=== PATIENT | female | born 1990 | race African-American/Black ===

== ENCOUNTER 2021-05-22 20:47 | Emergency (ER) | payer OTHER ==
[2021-05-22 23:23] LABS: Urine Blood 1+ (Negative); Urine Glucose Negative (Negative); Urine Protein Negative (Negative)
[2021-05-22] MEDS ORDERED: DIPHENHYDRAMINE 50 MG/ML VIAL ONE (23:38)
[2021-05-22] MEDS ORDERED: KETOROLAC 30 MG/ML INJ ONE (23:38)
[2021-05-22] MEDS ORDERED: METOCLOPRAMIDE 10 MG/2mL INJ ONE (23:38)
[2021-05-22] MEDS ORDERED: NA CHLORIDE 0.9% 1,000 ML ONE (23:38)
[2021-05-23 00:15] LABS: Absolute Lymphocytes (CBC) 2.7 K/uL (0.7-4.9); Basophils % 0.6 % (0-1.3); Hematocrit 38.2 % (36.0-45.0); Lymphocytes % 38.8 % (15.3-44.8); MPV 8.5 fL (7.6-11.3); RBC Red Blood Cell Count 4.29 M/uL (3.86-4.86)
[2021-05-23 00:19] LABS: ALT/SGPT 20 U/L (12-78); AST/SGOT 17 U/L (15-37); Albumin 3.2 g/dL (3.4-5.0); Alkaline Phosphatase 60 U/L (45-117); BUN Blood Urea Nitrogen 9 mg/dL (7-18); Bicarbonate 23 mmol/L (21-32); Bilirubin Direct < 0.1 mg/dL (0-0.2); Bilirubin Total 0.2 mg/dL (0.2-1.0); Glucose Level 81 mg/dL (74-106); Lipase 128 U/L (73-393); Potassium 3.7 mmol/L (3.5-5.1); Protein, Total 7.1 g/dL (6.4-8.2); Sodium Level 139 mmol/L (136-145)
--- NOTE | 2021-05-23 01:50 | ER ---
Nurse's Notes [facility] Name: Trisha Escobar Age: 30 yrs Sex: Female : 1990 Arrival Date: 05/22/2021 Time: 20:51 Bed 19 Private MD: Diagnosis: Headache;Diarrhea, unspecified Presentation: 05/22 21:03 Chief complaint: Patient states: For about a week pt has had NV and headache. Pt states vg1 'the light bothers me'. Coronavirus screen: Client denies travel out of the [place] in the last 14 days. Ebola Screen: Patient negative for fever greater than or equal to 101.5 degrees Fahrenheit, and additional compatible Ebola Virus Disease symptoms. Initial Sepsis Screen: Does the patient meet any 2 criteria? No. Patient's initial sepsis screen is negative. Does the patient have a suspected source of infection? No. Patient's initial sepsis screen is negative. Risk Assessment: Do you want to hurt yourself or someone else? Patient reports no desire to harm self or others. Onset of symptoms was May 17, 2021. 21:03 Method Of Arrival: Ambulatory [facility] 21:03 Acuity: FLORENTINO 4 vg1 Triage Assessment: 21:05 Headache History: The patient has had previous headaches and this one is different than vg1 previous episodes, and this one is more severe than previous episodes. General: Appears in no apparent distress. uncomfortable, Behavior is calm, cooperative. Pain: Complains of pain in head Pain currently is 7 out of 10 on a pain scale. Pain began about a week ago Also complains of nausea, photophobia. Neuro: Level of Consciousness is awake, alert, obeys commands, Oriented to person, place, time, situation, Reports headache photophobia. 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 - Social history:: Smoking status: Patient denies any tobacco usage or history of. Screenin:00 Abuse screen: Denies threats or abuse. Nutritional screening: No deficits noted. jb4 Tuberculosis screening: No symptoms or risk factors identified. Fall Risk None identified. Assessment: 22:00 General: Appears in no apparent distress. uncomfortable, Behavior is calm, cooperative, jb4 appropriate for age. Pain: Complains of pain in right side of head Pain does not radiate. Pain currently is 7 out of 10 on a pain scale. Neuro: Level of Consciousness is awake, alert, obeys commands, Oriented to person, place, time, situation. Cardiovascular: Patient's skin is warm and dry. Respiratory: Airway is patent Respiratory effort is even, unlabored, Respiratory pattern is regular, symmetrical. GI: No signs and/or symptoms were reported involving the gastrointestinal system. : No signs and/or symptoms were reported regarding the genitourinary system. EENT: No signs and/or symptoms were reported regarding the EENT system. Derm: Skin is intact, Skin is pink, warm \T\ dry. Musculoskeletal: Circulation, motion, and sensation intact. Range of motion: intact in all extremities. 23:00 Reassessment: Patient appears in no apparent distress at this time. Patient and/or jb4 family updated on plan of care and expected duration. Pain level reassessed. Patient is alert, oriented x 3, equal unlabored respirations, skin warm/dry/pink. 05/23 00:00 Reassessment: Patient appears in no apparent distress at this time. Patient and/or jb4 family updated on plan of care and expected duration. Pain level reassessed. Patient is alert, oriented x 3, equal unlabored respirations, skin warm/dry/pink. Patient states feeling better. 01:00 Reassessment: Patient appears in no apparent distress at this time. Patient and/or jb4 family updated on plan of care and expected duration. Pain level reassessed. Patient is alert, oriented x 3, equal unlabored respirations, skin warm/dry/pink. 02:33 Reassessment: Patient appears in no apparent distress at this time. Patient and/or jb4 family updated on plan of care and expected duration. Pain level reassessed. Patient is alert, oriented x 3, equal unlabored respirations, skin warm/dry/pink. Pt verbalized understanding of d/c and follow up instructions. Denies questions or concerns. Assisted to vehicle via wheelchair. Vital Signs: 05/22 21:03 BP 109 / 79; Pulse 73; Resp 16; Temp 98.1; Pulse Ox 100% ; Weight 102.06 kg; Height 5 vg1 ft. 3 in. (160.02 cm); Pain 7/10; 23:45 BP 124 / 70; Pulse 72; Resp 16; Pulse Ox 99% on R/A; jb4 05/23 00:45 BP 120 / 77; Pulse 80; Resp 18; Pulse Ox 98% on R/A; jb4 01:30 BP 116 / 67; Pulse 75; Resp 16; Pulse Ox 100% on R/A; jb4 02:15 BP 102 / 57; Pulse 73; Resp 16; Pulse Ox 100% on R/A; jb4 05/22 21:03 Body Mass Index 39.86 (102.06 kg, 160.02 cm) vg1 ED Course: 05/22 20:51 Patient arrived in ED. bp1 21:05 Triage completed. vg1 21:05 Arm band placed on. vg1 22:00 Patient has correct armband on for positive identification. Placed in gown. Bed in low jb4 position. Call light in reach. Side rails up X 1. Pulse ox on. NIBP on. 22:15 Diaz Baez NP is PHCP. pm1 22:15 Blaise Saleem MD is Attending Physician. pm1 23:19 Irving Olmos, BASSEM is Primary Nurse. jb4 23:20 CT Head Brain wo Cont In Process Unspecified. EDMS 05/23 02:35 No provider procedures requiring assistance completed. IV discontinued, intact, jb4 bleeding controlled, No redness/swelling at site. Pressure dressing applied. Administered Medications: 05/22 23:32 Drug: Benadryl (diphenhydrAMINE) 25 mg Route: IVP; Site: right antecubital; jb4 05/23 00:00 Follow up: Response: No adverse reaction jb4 05/22 23:32 Drug: NS 0.9% 1000 ml Route: IV; Rate: 1000 ml; Site: right antecubital; jb4 05/23 00:30 Follow up: Response: No adverse reaction; IV Status: Completed infusion; IV Intake: jb4 1000ml 05/22 23:33 Drug: Ketorolac 30 mg Route: IVP; Site: right antecubital; jb4 07/07 00:00 Follow up: Response: No adverse reaction jb4 05/22 23:33 Drug: Reglan (metoCLOPramide) 10 mg Route: IVP; Site: right antecubital; jb4 05/23 00:00 Follow up: Response: No adverse reaction jb4 Intake: 00:30 IV: 1000ml; Total: 1000ml. jb4 Outcome: 01:50 Discharge ordered by MD. pm1 02:35 Discharged to home ambulatory. jb4 02:35 Condition: stable 02:35 Discharge instructions given to patient, family, Instructed on discharge instructions, follow up and referral plans. medication usage, Demonstrated understanding of instructions, follow-up care, medications, Prescriptions given X 1. 02:37 Patient left the ED. jb4 Signatures: Dispatcher [employer] EDMS Diaz Baez, CAREN PSYCHIATRY TEACHER pm1 Irving Olmos RN RN jb4 Kait Carbajal RN RN vg1 Edelmira Kirby [facility]
--- NOTE | 2021-05-23 01:51 | EDPHYS ---
Physician Documentation [facility] Name: Trisha Escobar Age: 30 yrs Sex: Female : 1990 Arrival Date: 05/22/2021 Time: 20:51 Bed 19 Private MD: ED Physician Blaise Saleem HPI: 05/23 00:06 This 30 yrs old Black Female presents to ER via Ambulatory with complaints of Headache, pm1 Nausea/Vomiting. 00:06 The patient complains of pain to the right side of head. The patient describes the pm1 headache as aching, constant. Onset: The symptoms/episode began/occurred 3 week(s) ago. Associated signs and symptoms: Pertinent positives: nausea, Photophobia vomiting, 4 days ago 3 days of diarrhea. No diarrhea today, Pertinent negatives: fever. Severity of symptoms: in the emergency department the pain is unchanged, a " 7" out of "10". Headache History: The patient has had previous headaches and this one is similar to previous episodes, and this one is more severe than previous episodes. The symptoms are alleviated by Darkened room, quiet, the symptoms are aggravated by lights, noise. The patient has not recently seen a physician. 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 - Social history:: Smoking status: Patient denies any tobacco usage or history of. ROS: 05/23 00:06 Constitutional: Negative for fever, chills, and weight loss, Eyes: Negative for injury, pm1 pain, redness, and discharge, ENT: Negative for injury, pain, and discharge, Cardiovascular: Negative for chest pain, palpitations, and edema, Respiratory: Negative for shortness of breath, cough, wheezing, and pleuritic chest pain. Back: Negative for injury and pain, MS/Extremity: Negative for injury and deformity. Skin: Negative for injury, rash, and discoloration. Abdomen/GI: Positive for nausea, vomiting, and diarrhea, Negative for abdominal pain, constipation. Neuro: Positive for headache, Negative for numbness, tingling, weakness. Exam: 00:06 Constitutional: This is a well developed, well nourished patient who is awake, alert, pm1 and in no acute distress. Head/Face: Normocephalic, atraumatic. 00:06 Back: No spinal tenderness. No costovertebral tenderness. Full range of motion. Skin: Warm, dry with normal turgor. Normal color with no rashes, no lesions, and no evidence of cellulitis. MS/ Extremity: Pulses equal, no cyanosis. Neurovascular intact. Full, normal range of motion. 00:06 Eyes: Exam is negative for acute changes, Periorbital structures: appear normal, Pupils: no acute changes, Extraocular movements: no acute changes, Conjunctiva: no acute changes, no injection, Sclera: no acute changes, icterus, is not appreciated. 00:06 ENT: Exam is negative for acute changes, Mouth: Lips: normal, Oral mucosa: normal, pink and intact, moist. 00:06 Cardiovascular: Rate: normal, Rhythm: regular, Pulses: no pulse deficits are appreciated. 00:06 Respiratory: Exam negative for acute changes, respiratory distress, shortness of breath, Breath sounds: are clear throughout. 00:06 Abdomen/GI: Exam negative for acute changes, Inspection: abdomen appears normal, Palpation: abdomen is soft and non-tender, in all quadrants. 00:06 Neuro: Exam negative for acute changes, Orientation: is normal, Mentation: is normal, Motor: is normal, moves all fours. Vital Signs: 05/22 21:03 BP 109 / 79; Pulse 73; Resp 16; Temp 98.1; Pulse Ox 100% ; Weight 102.06 kg; Height 5 vg1 ft. 3 in. (160.02 cm); Pain 7/10; 23:45 BP 124 / 70; Pulse 72; Resp 16; Pulse Ox 99% on R/A; jb4 05/23 00:45 BP 120 / 77; Pulse 80; Resp 18; Pulse Ox 98% on R/A; jb4 01:30 BP 116 / 67; Pulse 75; Resp 16; Pulse Ox 100% on R/A; jb4 02:15 BP 102 / 57; Pulse 73; Resp 16; Pulse Ox 100% on R/A; jb4 05/22 21:03 Body Mass Index 39.86 (102.06 kg, 160.02 cm) vg1 MDM: 05/22 22:59 Patient medically screened. pm1 05/23 00:10 Data reviewed: vital signs. Data interpreted: Pulse oximetry: on room air is 100 %. pm1 Interpretation: normal. 00:23 ED course: Pain 3/10 with medications given in the ER. pm1 01:49 Counseling: I had a detailed discussion with the patient and/or guardian regarding: the pm1 historical points, exam findings, and any diagnostic results supporting the discharge/admit diagnosis, lab results, radiology results, the need for outpatient follow up, to return to the emergency department if symptoms worsen or persist or if there are any questions or concerns that arise at home. 05/22 23:22 Order name: Urine Dipstick-Ancillary; Complete Time: 23:35 EDMS 05/22 23:23 Order name: Urine --Ancillary (enter results); Complete Time: 00:13 [facility] 05/22 23:34 Order name: Basic Metabolic Panel; Complete Time: 00:20 05/22 23:34 Order name: CBC with Diff; Complete Time: 00:20 05/22 23:34 Order name: Hepatic Function; Complete Time: 00:20 [facility] 05/22 23:34 Order name: Lipase; Complete Time: 00:20 05/22 22:46 Order name: CT Head Brain wo Cont pm1 05/22 23:35 Order name: Flu; Complete Time: 01:33 pm1 05/23 01:46 Order name: SARS-COV-2 RT PCR; Complete Time: 01:49 EDMS 05/22 22:46 Order name: IV Saline Lock; Complete Time: 23:32 pm1 05/22 22:46 Order name: Urine Dipstick-Ancillary (obtain specimen); Complete Time: 23:19 pm1 05/22 22:46 Order name: Urine Test (obtain specimen); Complete Time: 23:19 pm1 05/22 23:34 Order name: Labs collected and sent; Complete Time: 00:41 jb4 Administered Medications: 05/22 23:32 Drug: Benadryl (diphenhydrAMINE) 25 mg Route: IVP; Site: right antecubital; [facility] 05/23 00:00 Follow up: Response: No adverse reaction jb4 05/22 23:32 Drug: NS 0.9% 1000 ml Route: IV; Rate: 1000 ml; Site: right antecubital; 4 05/23 00:30 Follow up: Response: No adverse reaction; IV Status: Completed infusion; IV Intake: jb4 1000ml 05/22 23:33 Drug: Ketorolac 30 mg Route: IVP; Site: right antecubital; jb4 05/23 00:00 Follow up: Response: No adverse reaction jb4 05/22 23:33 Drug: Reglan (metoCLOPramide) 10 mg Route: IVP; Site: right antecubital; jb4 05/23 00:00 Follow up: Response: No adverse reaction jb4 Disposition: 08:03 Co-signature as Attending Physician, Blaise Saleem MD. [email or web address] Disposition Summary: 05/23/21 01:50 Discharge Ordered Location: Home pm1 Problem: new pm1 Symptoms: have improved pm1 Condition: Stable pm1 Diagnosis - Headache pm1 - Diarrhea, unspecified pm1 Followup: pm1 - With: Emergency Department - When: As needed - Reason: Worsening of condition Followup: pm1 - With: Private Physician - When: 2 - 3 days - Reason: Recheck today's complaints, Continuance of care, Re-evaluation by your physician Discharge Instructions: - Discharge Summary Sheet pm1 - Food Choices to Help Relieve Diarrhea, Adult pm1 - General Headache Without Cause pm1 - Tension Headache, Adult pm1 - Diarrhea, Adult, [id number] pm1 Forms: - Medication Reconciliation Form pm1 - Thank You Letter pm1 - Antibiotic Education pm1 - Prescription Opioid Use pm1 Prescriptions: - ondansetron 4 mg Oral tablet,disintegrating - take 1 tablet by ORAL route every 8 hours As needed; 15 tablet; Refills: 0, pm1 Product Selection Permitted Signatures: Dispatcher [employer] EDMS Diaz Baez, CAREN [employer]ICE RECORDS CLERK pm1 Irving Olmos RN RN jb4 Kait Carbajal RN RN vg1 Blaise Saleem MD MD [email or web address] Corrections: (The following items were deleted from the chart) 00:43 05/22 23:35 CORONAVIRUS+.BRZ ordered. EDMS EDMS
[2021-05-23 02:52] VITALS: O2SAT 100
[2021-05-23 02:54] VITALS: BP 102/57
[2021-05-23 02:57] VITALS: TEMP 98.1
--- NOTE | 2021-05-23 12:42 | RAD REPORT ---
EXAM DESCRIPTION: CT - Head Brain Wo Cont - 05/23/2021 6:34 am COMPARISON: None. CLINICAL HISTORY: HEADACHE TECHNIQUE: Axial images were obtained from skull base to vertex without intravenous contrast. Imag es viewed on bone and brain windows. Multiplanar reformats were performed. Automated exposure contr ol was utilized on this examination as a dose lowering technique. FINDINGS: Brain parenchyma, ventricles, dura, meninges, and extra-axial spaces: Ventricles and sulci are normal. No abnormal attenuation of brain parenchyma is present. No acute intracranial hemor rhage or abnormal extra-axial fluid collections are present. Vascular structures: No hyperdense arteries or veins. Calvarium, mastoid air cells, paranasal sinuses and orbits: The calvarium is normal. The mastoid air cells are clear. Visualized paranasal sinuses are unremarkable. Orbital structures are unremarkable. IMPRESSION: No acute intracranial abnormality. Electronically signed by: Camilo Blandon MD 05/22/2021 11:35 PM CDT Due to temporary technical issues with the PACS/Fluency reporting system, reports are being signed by the in house radiologist without review as a courtesy to ensure prompt reporting. The interpreting r adiologist is fully responsible for the content of the report.
== END 2021-05-23 02:37 | disposition home or self-care (01) ==
LOC: ER 20:47
DX: R51.9 Headache, unspecified (principal); R19.7 Diarrhea, unspecified; Z20.822 Contact with and (suspected) exposure to COVID-19
CPT/HCPCS: 96361; 85025; 80048; 36415; 81025; 80076; 81003; 83690; 87804 ×2; 70450; 96375; 96374; 99284; U0003; J2765; J1200; J7030